=== PATIENT | female | born 1955 | race Caucasian/White ===

== ENCOUNTER 2020-09-02 17:21 | Observation (INO) ==
[2020-09-02] MEDS ORDERED: Isovue-370 500 ML BOTTLE IVP ONE (19:28)
[2020-09-02] MEDS ORDERED: 0.9 % Sodium Chloride 500 ML IVC ONE (19:29)
[2020-09-02 20:22] LABS: Basophils # 0.1 K/mcL (0.0-0.2); Basophils % 0.6 %; Eosinophils # 0.3 K/mcL (0.0-0.6); Eosinophils % 3.3 %; Hematocrit 42.2 % (35.3-44.9); Hemoglobin 13.9 g/dL (11.5-15.4); Immature Granulocytes % 0.4 % (0-4); Lymphocytes # 2.2 K/mcL (0.6-4.6); Lymphocytes % 25.5 %; Mean Corpuscular HGB Conc 32.9 g/dL (31.6-35.5); Mean Corpuscular Volume 91.1 fL (83.0-100.0); Mean Platelet Volume 9.3 fL (9.4-12.4); Monocytes # 0.5 K/mcL (0.0-1.3); Monocytes % 5.7 %; Neutrophils # 5.5 K/mcL (1.6-8.9); Platelet Count 302 K/mcL (140-400); Red Blood Count 4.63 M/mcL (3.82-4.97); Red Cell Distribution Width 12.4 % (11.5-14.5); Segmented Neutrophils % 64.5 %; White Blood Count 8.5 K/mcL (4.3-11.1)
[2020-09-02 20:36] LABS: BUN/Creatinine Ratio 26 (6-26); Blood Urea Nitrogen 17 mg/dL (8-23); Calcium 9.2 mg/dL (8.6-10.3); Carbon Dioxide 23 mEq/L (23-29); Chloride 102 mEq/L (98-107); Glucose 209 mg/dL (70-105); Osmolality,Calculated 288 (280-300); Potassium 3.7 mEq/L (3.5-5.1); Sodium 135 mEq/L (136-145); eGFR For African Americans > 60 (> 60); eGFR For Non-African Americans > 60 (> 60)
[2020-09-02] MEDS ORDERED: Naloxone 0.4 MG/ML INJ IVP PRN (23:09)
[2020-09-02] MEDS ORDERED: Ondansetron 4 MG/2 ML VIAL IVP PRN (23:09)
[2020-09-02] MEDS ORDERED: Acetaminophen 325 MG TABLET PO PRN (23:09)
[2020-09-02] MEDS ORDERED: D5% in Water 1,000 ML IVC PRN (23:11)
[2020-09-02] MEDS ORDERED: *HR* Dextrose 50 % in Water (Vial) 50 ML VIAL IVP PRN (23:11)
[2020-09-02] MEDS ORDERED: Dextrose Gel 15 GM/37.5 ML TUBE PO PRN ×2 (23:11)
[2020-09-03] MEDS: Clindamycin 600 MG/50 ML 600 MG/50 ML IV.SOLN IVPB SCH ×4 (00:40→23:28)
[2020-09-03 03:11] LABS: Prothrombin Time 11.8 Seconds (9.4-12.1)
[2020-09-03 03:12] LABS: Basophils # 0.1 K/mcL (0.0-0.2); Basophils % 0.7 %; Eosinophils # 0.4 K/mcL (0.0-0.6); Eosinophils % 4.6 %; Hematocrit 37.4 % (35.3-44.9); Immature Granulocytes % 0.5 % (0-4); Lymphocytes % 25.1 %; Mean Corpuscular HGB Conc 32.6 g/dL (31.6-35.5); Mean Corpuscular Hemoglobin 30.1 pg (28.0-33.3); Mean Corpuscular Volume 92.3 fL (83.0-100.0); Mean Platelet Volume 9.7 fL (9.4-12.4); Monocytes # 0.6 K/mcL (0.0-1.3); Monocytes % 7.3 %; Platelet Count 261 K/mcL (140-400); Red Blood Count 4.05 M/mcL (3.82-4.97); Red Cell Distribution Width 12.2 % (11.5-14.5); Segmented Neutrophils % 61.8 %; White Blood Count 8.1 K/mcL (4.3-11.1)
[2020-09-03 03:14] LABS: BUN/Creatinine Ratio 25 (6-26); Blood Urea Nitrogen 15 mg/dL (8-23); C-Reactive Protein 8 mg/L (Less than 10); Calcium 8.3 mg/dL (8.6-10.3); Carbon Dioxide 19 mEq/L (23-29); Chloride 105 mEq/L (98-107); Glucose 394 mg/dL (70-105); Osmolality,Calculated 295 (280-300); Potassium 3.6 mEq/L (3.5-5.1); Sodium 134 mEq/L (136-145); eGFR For African Americans > 60 (> 60); eGFR For Non-African Americans > 60 (> 60)
[2020-09-03 03:21] LABS: Hemoglobin 12.2 g/dL (11.5-15.4)
[2020-09-03] MEDS ORDERED: Insulin LISPRO 300 UNITS/3 ML VIAL SUBQ SCH ×3 (07:30→21:00)
[2020-09-03] MEDS ORDERED: Ondansetron 4 MG/2 ML VIAL IVP PRN ×2 (10:15→12:52)
[2020-09-03] MEDS ORDERED: *HR* HYDROmorphone PF 0.5 MG/0.5 ML SYRINGE IVP PRN (10:15)
[2020-09-03] MEDS ORDERED: Acetaminophen IV 1,000 MG/100 ML BAG IVPB ONE ×2 (10:19→10:30)
[2020-09-03] MEDS ORDERED: Famotidine 20 MG/2 ML VIAL ONE (10:20)
[2020-09-03] MEDS ORDERED: Famotidine 20 MG/2 ML VIAL IVP ONE (10:30)
[2020-09-03] MEDS ORDERED: Ondansetron 4 MG/2 ML VIAL ONE (10:42)
[2020-09-03] MEDS ORDERED: Lidocaine HCL 4 ML Topical Solution (Laryng-O-Jet Kit Sterile Pak) TP ONE (10:42)
[2020-09-03] MEDS ORDERED: *HR* Propofol 200 MG/20 ML VIAL IVP ONE (10:42)
[2020-09-03] MEDS ORDERED: *HR* FentaNYL (PF) 100 MCG/2 ML VIAL ONE (10:42)
[2020-09-03] MEDS ORDERED: Lidocaine -MPF 2% 2 ML VIAL ONE (10:42)
[2020-09-03] MEDS ORDERED: *HR* Succinylcholine 200 MG/10 ML VIAL IVP ONE (10:42)
[2020-09-03] MEDS ORDERED: *HR* HYDROMORPHONE 2 MG/ML VIAL ONE (11:05)
[2020-09-03] MEDS ORDERED: EPHEDrine 50 MG/ML VIAL ONE (11:21)
[2020-09-03] MEDS ORDERED: D5% in Water 1,000 ML IVC PRN (12:52)
[2020-09-03] MEDS ORDERED: *HR* Dextrose 50 % in Water (Vial) 50 ML VIAL IVP PRN (12:52)
[2020-09-03] MEDS ORDERED: Dextrose Gel 15 GM/37.5 ML TUBE PO PRN ×2 (12:52)
[2020-09-03] MEDS ORDERED: Naloxone 0.4 MG/ML INJ IVP PRN (12:52)
[2020-09-03] MEDS ORDERED: Fluticasone Propionate Nasal 50 MCG/SPRAY BOTTLE NS PRN (13:27)
[2020-09-03] MEDS ORDERED: Gabapentin 300 MG CAPSULE PO PRN (13:27)
[2020-09-03] MEDS: Insulin LISPRO 300 UNITS/3 ML VIAL SUBQ SCH (18:27)
[2020-09-03] MEDS ORDERED: Ipratropium/Albuterol Neb 3 ML IH PRN (18:35)
[2020-09-03] MEDS: Acetaminophen 325 MG TABLET PO PRN (19:45)
[2020-09-03] MEDS: Nicotine 2 MG GUM BC SCH ×2 (19:57→22:14)
[2020-09-03] MEDS: Lactobacillus 1 EACH CAP.SPRINK PO SCH (19:58)
[2020-09-03] MEDS ORDERED: Insulin DETEMIR 100 UNIT/ML X5UNITS SUBQ SCH (21:00)
[2020-09-03] MEDS: Budesonide/Formoterol 160/4.5 1 PUFF INH IH SCH (21:37)
[2020-09-03] MEDS: Ipratropium/Albuterol Neb 3 ML IH SCH (21:37)
[2020-09-04] MEDS: Ipratropium/Albuterol Neb 3 ML IH SCH ×3 (03:24→15:12)
[2020-09-04] MEDS: Nicotine 2 MG GUM BC SCH ×5 (05:40→13:25)
[2020-09-04 07:00] LABS: Basophils # 0.1 K/mcL (0.0-0.2); Basophils % 0.5 %; Eosinophils % 0.2 %; Hematocrit 36.1 % (35.3-44.9); Hemoglobin 11.8 g/dL (11.5-15.4); Immature Granulocytes % 0.3 % (0-4); Lymphocytes # 2.2 K/mcL (0.6-4.6); Lymphocytes % 18.3 %; Mean Corpuscular HGB Conc 32.7 g/dL (31.6-35.5); Mean Corpuscular Hemoglobin 29.6 pg (28.0-33.3); Mean Corpuscular Volume 90.5 fL (83.0-100.0); Mean Platelet Volume 9.6 fL (9.4-12.4); Monocytes # 0.8 K/mcL (0.0-1.3); Monocytes % 6.9 %; Neutrophils # 8.9 K/mcL (1.6-8.9); Platelet Count 277 K/mcL (140-400); Red Blood Count 3.99 M/mcL (3.82-4.97); Red Cell Distribution Width 12.4 % (11.5-14.5); Segmented Neutrophils % 73.8 %; White Blood Count 12.1 K/mcL (4.3-11.1)
[2020-09-04 07:24] LABS: BUN/Creatinine Ratio 25 (6-26); Blood Urea Nitrogen 16 mg/dL (8-23); Calcium 8.8 mg/dL (8.6-10.3); Carbon Dioxide 20 mEq/L (23-29); Chloride 105 mEq/L (98-107); Glucose 157 mg/dL (70-105); Magnesium 1.8 mg/dL (1.6-2.6); Osmolality,Calculated 286 (280-300); Phosphorous 3.6 mg/dL (2.7-4.5); Potassium 3.8 mEq/L (3.5-5.1); Sodium 136 mEq/L (136-145); eGFR For African Americans > 60 (> 60); eGFR For Non-African Americans > 60 (> 60)
[2020-09-04] MEDS: Clindamycin 600 MG/50 ML 600 MG/50 ML IV.SOLN IVPB SCH (07:52)
[2020-09-04] MEDS: Insulin LISPRO 300 UNITS/3 ML VIAL SUBQ SCH ×2 (07:53→12:14)
[2020-09-04] MEDS: Acetaminophen 325 MG TABLET PO PRN (07:56)
[2020-09-04] MEDS: Lactobacillus 1 EACH CAP.SPRINK PO SCH (07:58)
[2020-09-04 08:03] LABS: Estimated Average Glucose 315 mg/dl; Hemoglobin A1C 12.6 %
[2020-09-04] MEDS ORDERED: Nicotine 14 MG PATCH.TD24 TD SCH (09:00)
[2020-09-04] MEDS: Budesonide/Formoterol 160/4.5 1 PUFF INH IH SCH (11:01)
[2020-09-04 11:12] VITALS: BP 159/81
[2020-09-04] MEDS ORDERED: Insulin Regular, Human 100 UNIT/ML IV ONE (12:17)
[2020-09-04] MEDS ORDERED: Insulin Human Regular 5 UNIT in 0.9 % Sodium Chloride 10 ML IV ONE (13:12)
== END 2020-09-04 15:38 | disposition home health service (06) ==
LOC: 3BNU 17:21 → EMEROOARM 17:21 → SUATTDRO 22:38 → 3ANU 23:30 → UNDODISOB 09-04 14:11
PROVIDERS: ADMIT Student in an Organized Health Care Education/Training Program; ATTEND Internal Medicine